=== PATIENT | male | born 1970 | race Hispanic/Latino ===

== ENCOUNTER 2021-06-09 02:12 | Observation (INO) | payer SELFPAY ==
[2021-06-09 02:51] VITALS: BP 115/52
[2021-06-09] MEDS ORDERED: SODIUM CHLORIDE 0.9% 1000 ML 1,000 ML ONE (03:02)
[2021-06-09] MEDS ORDERED: SODIUM CHLORIDE 0.9% 1000 ML 1,000 ML IV ONE (03:07)
--- NOTE | 2021-06-09 03:07 | Emergency Department Report ---
HPI - General Chief Complaint: Dyspnea/Respdistress Time Seen by Provider: 06/09/21 02:41 - HPI HPI: 50-year-old male with history of hep C and anemia due to recurrent GI bleeds brought in by police under arrest for medical clearance. The patient was pulled over and states that he ingested some kind of substance which she found on the ground outside of the gas station which he thought was methamphetamine. After being placed under arrest, the patient began to complain of shortness of breath and chest pain. The patient states that the symptoms came on gradually and that he has mid substernal pressure-like chest pain. He also states that for the last several weeks he has had intermittent dark tarry stools. He denies any associated fever/chills, headache, vision change, neck pain, back pain, focal weakness, sensory changes, abdominal pain, vomiting, diarrhea, bright red blood per rectum, or any other symptoms or complaints. There are no known aggravating or alleviating factors. ED Past Medical Hx - Past Medical History Previous Medical History?: Yes Hx Headaches / Migraines: Yes Additional medical history: ANEMIA, BLOOD TRANSFUSIONS, HIATAL HERNIA - Surgical History Past Surgical History?: No - Social History Smoking Status: Current Every Day Smoker Substance Use Type: Alcohol - Medications Home Medications: Home Medications Medication Instructions Recorded Confirmed Last Taken Type Ferrous Sulfate [Feosol 325 MG tab] 325 mg PO BID 01/27/15 01/27/15 01/26/15 21:00 History ED Review of Systems ROS: Stated complaint: MEDICAL CLEARANCE FOR USP Other details as noted in HPI Constitutional: denies: chills, fever Eyes: denies: eye pain, vision change ENT: denies: throat pain, congestion Respiratory: shortness of breath. denies: cough Cardiovascular: chest pain. denies: palpitations, syncope Gastrointestinal: melena. denies: abdominal pain, nausea, vomiting, diarrhea, hematemesis Genitourinary: denies: dysuria, hematuria Musculoskeletal: denies: back pain, arthralgia Skin: denies: rash, pruritus Neurological: denies: headache, weakness, numbness Psychiatric: anxiety. denies: auditory hallucinations, visual hallucinations, homicidal thoughts, suicidal thoughts Physical Exam - Physical Exam Vital Signs: Vital Signs 06/09/21 06/09/21 02:39 02:46 Pulse Rate 83 89 Respiratory 13 11 L Rate Blood Pressure 115/52 O2 Sat by Pulse 97 Oximetry Physical Exam: GENERAL: Obese male. No acute distress. Appears pale. HEAD: Normocephalic. No obvious signs of trauma. ENT: Dry mucous membranes. EYES: Extraocular movements are intact. Pupils are equal round and reactive to light bilaterally NECK: Supple. Full ROM is intact. Trachea is midline. LUNGS: Slightly tachypneic. Equal chest rise bilaterally. Coarse breath sounds throughout CARDIOVASCULAR: Regular rate and rhythm. No murmurs or rubs. VASCULAR: Cap refill < 2 seconds ABDOMEN: Abdomen is soft and nondistended. There is no significant tenderness, guarding or rebound. SKIN: Skin is warm and dry NEURO: Patient is awake, alert, and oriented. wrapping clerk II-XII grossly intact. No focal deficits. Normal motor and sensory exam throughout. Normal speech. MUSCULOSKELETAL: No obvious deformities. No significant tenderness. Normal ROM throughout. BACK/SPINE: No costovertebral angle tenderness. ED Course Vital Signs 06/09/21 06/09/21 02:39 02:46 Pulse Rate 83 89 Respiratory 13 11 L Rate Blood Pressure 115/52 O2 Sat by Pulse 97 Oximetry ED Medical Decision Making - Lab Data Result diagrams: 06/09/21 03:32 06/09/21 03:32 - EKG Data -: EKG Interpreted by Al - EKG Data 06/09/21 18:00 Normal sinus rhythm. Normal axis. Normal intervals. No ectopy. No sig nificant ST segment or T wave abnormalities. - Medical Decision Making 50-year-old male with history of large hiatal hernia and recurrent anemia related to GI bleeds brought in by police complaining of chest pain and shortness of breath right after being placed under arrest. Patient claims that he ingested unknown amount of white substance which he says he found on the floor outside of a gas station and believed to be methamphetamine. He also reports weeks of intermittent melena. Vital signs are within normal limits. On initial assessment, the patient is in no acute distress. He has dry mucous membranes. He does appear to be pale. His abdomen is nontender and nondistended. Lung auscultation reveals coarse breath sounds throughout. We will perform full work-up including full set of labs, EKG, and chest x-ray. We will give 1 L of IV fluids. The patient was offered aspirin but prefers to wait on the results of the tests given his history of GI bleed and anemia. EKG is nonischemic. Labs reveal no leukocytosis but there is significant anemia with hemoglobin of 6.3. Slight thrombocytosis is present. There are no significant electrolyte abnormalities and kidney function is within normal limits. Initial troponin is negative. Coags are within normal limits. After the results of these labs were obtained I discussed with the patient and rectal exam was performed with the nurse present as a retail customer service specialist revealing normal brown appearing stool which is Hemoccult negative. Nonetheless, I have ordered 80 mg of IV Protonix and will place a call to gastroenterology. 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 Patient reports that his chest pain and shortness of breath have resolved but now states that he has some abdominal pain. He remains without significant tenderness, guarding, or rebound. I discussed with the patient the need for admission given the a forementioned findings and he expressed understanding and agreement. Chest x-ray reveals possible left basilar atelectasis versus pneumonia as well as findings consistent with the patient's known hiatal hernia. Will defer to admitting doctor in regard to antibiotics. At 5:38 AM I spoke with of gastroenterology regarding the case. He agrees with current management and states that he will give further inpatient recommendations. Shortly thereafter I spoke with Dr. Barrett, the on-call hospitalist regarding the case and he accepts patient for admission and will assume care. Critical Care Time: Yes Critical care time in (mins) excluding proc time.: 35 Critical care attestation.: If time is entered above; I have spent that time in minutes in the direct care of this critically ill patient, excluding procedure time. Critical care time was spent in the evaluation, assessment, work-up, and management of chest pain and shortness of breath, unknown substance ingestion, symptomatic anemia requiring blood transfusion, consultation with specialist and multiple reevaluations reassessments. ED Disposition Clinical Impression: Symptomatic anemia, SOB (shortness of breath), Chest pain, Ingestion of unknown substance Disposition: 07 LEFT AWOL/ELOPED Is pt being admited?: Yes Condition: Stable
--- NOTE | 2021-06-09 04:05 | XRay Report ---
CHEST 1 VIEW 06/09/2021 2:50 AM INDICATION / CLINICAL INFORMATION: SOB. COMPARISON: None available. FINDINGS: SUPPORT DEVICES: None. HEART / MEDIASTINUM: The heart size and pulmonary vasculature are normal. LUNGS / PLEURA: There is mild patchy parenchymal disease in the left lung base. There is a mass in th e right lower hemithorax medially which could just represent a hiatal hernia. No pneumothorax. ADDITIONAL FINDINGS: No significant additional findings. IMPRESSION: 1. Mild left basilar atelectasis or pneumonia. 2. Mass in the right lower hemithorax medially may just represent a hiatal hernia. PA and lateral vie ws in the Radiology Department may be helpful in initial evaluation. Signer Name: Mason Lim MD Signed: 06/09/2021 4:01 AM Workstation Name: [id number]
[2021-06-09 04:06] LABS: Eosinophils # (Auto) 0.1 K/mm3 (0.0-0.4)
[2021-06-09 04:13] LABS: Alanine Aminotransferase 13 units/L (7-56); Albumin 3.4 g/dL (3.9-5); BUN/Creatinine Ratio 18; Blood Urea Nitrogen 14 mg/dL (9-20); Calcium 8.2 mg/dL (8.4-10.2); Hemolysis Index 0
[2021-06-09 04:16] LABS: Bilirubin,Direct < 0.2 mg/dL (0-0.2); INR 1.05 (0.87-1.13)
[2021-06-09 04:17] LABS: Partial Thromboplastin Time 30.9 Sec. (24.2-36.6)
[2021-06-09 04:41] LABS: Basophils % (Auto) 0.5 % (0.0-1.8); Eosinophils % (Auto) 1.2 % (0.0-4.3); Hemoglobin 6.3 gm/dl (11.8-15.2); Lymphocytes # (Auto) 0.9 K/mm3 (1.2-5.4); Lymphocytes % (Auto) 10.1 % (13.4-35.0); Mean Corpuscular HGB Conc 29 % (32-34); Mean Corpuscular Volume 60 fl (84-94); Monocytes # (Auto) 0.6 K/mm3 (0.0-0.8); Monocytes % (Auto) 6.8 % (0.0-7.3); Platelet Count 466 K/mm3 (140-440); Red Blood Count 3.68 M/mm3 (3.65-5.03); Red Cell Distribution Width 20.2 % (13.2-15.2)
[2021-06-09] MEDS ORDERED: PANTOPRAZOLE 40 MG INJ IV ONE (04:47)
[2021-06-09] MEDS ORDERED: ONDANSETRON 4 MG/2 ML INJ IV PRN (06:02)
[2021-06-09] MEDS ORDERED: MORPHINE 2 MG/1 ML INJ IV PRN (06:02)
[2021-06-09] MEDS ORDERED: ALBUTEROL 2.5 MG/3 ML NEBU IH PRN (06:02)
[2021-06-09] MEDS ORDERED: HYDROmorphone 1 MG/1 ML INJ IV PRN (06:02)
[2021-06-09] MEDS ORDERED: ACETAMINOPHEN 325 MG TAB PO PRN (06:02)
--- NOTE | 2021-06-09 06:33 | Event Note ---
Date: 06/09/21 Patient is seen and examined and admission order is put already in the computer but patient escaped from the hospital and security.
[2021-06-09] MEDS ORDERED: D5W/0.45% NACL 1,000 ML IV SCH (07:00)
[2021-06-09] MEDS ORDERED: IPRATROPIUM/ALBUTEROL SULFATE 3 ML AMPUL.NEB IH SCH (08:00)
[2021-06-09] MEDS ORDERED: FERROUS SULFATE 325 MG TAB PO SCH (10:00)
--- NOTE | 2021-06-10 12:10 | Electrocardiograph Report ---
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
== END 2021-06-09 07:00 | disposition left against medical advice (07) ==
LOC: ED 02:12 → 4A 06:02
PROVIDERS: ADMIT Hospitalist; ATTEND Hospitalist
DX: D64.9 Anemia, unspecified (principal); R07.89 Other chest pain; K44.9 Diaphragmatic hernia without obstruction or gangrene; R06.02 Shortness of breath; F17.210 Nicotine dependence, cigarettes, uncomplicated
CPT/HCPCS: 36415; 71045; 80048; 80076; 82140; 82271; 83690; 83735; 83880; 84484; 85025; 85610; 85730; 86850; 86900; 86901; 93005; 96361; 96374; 99291; C9113; G0378; J7030; 80320; Q0162; G0480

== ENCOUNTER 2021-11-25 01:26 | Emergency (ER) | payer SELFPAY | END 2021-11-25 01:30 | disposition left against medical advice (07) | LOC: ED 01:26 | DX: R53.1 Weakness (principal); Z53.21 Procedure and treatment not carried out due to patient leaving prior to being seen by health care provider ==